=== PATIENT | male | born 1980 | race American Indian/Alaskan Native ===

== ENCOUNTER 2017-03-22 12:08 | Emergency (ER) | payer SELFPAY ==
[2017-03-22] MEDS ORDERED: Sodium Chloride 0.9% 1,000 ML IV STA (12:18)
--- NOTE | 2017-03-22 12:23 | ED PDOC ---
Arrival/HPI - General Time Seen by Provider: 03/22/17 12:15 Historian: Patient, Partner, EMS - History of Present Illness Narrative History of Present Illness (Text): 03/22/17 12:10 Michael Arias is a 36 year old male, whose past medical history includes PTSD, is brought into the emergency department by EMS for having "tremors." According to EMS, called them from home due to tremors and patient was non-verbal during transport. Patient currently complains of having nausea and abdominal pain. Patient denies chest pain, shortness of breath, cough, or other complaints. EMS reports that told them that patient has hx of similar reactions after influenza injection and had flu shot yesterday. Time/Duration: Prior to Arrival Symptom Onset: Sudden Symptom Course: Unchanged Context: Home Associated Symptoms (Text): tremors, nausea, abdominal pain Past Medical History - Provider Review Nursing Documentation Reviewed: Yes - Infectious Disease Hx of Infectious Diseases: None - Tetanus Immunization Tetanus Immunization: Unknown - Cardiac Hx Hypertension: No - Pulmonary Hx Tuberculosis: No - Neurological Hx Seizures: No - Hematological/Oncological Hx Cancer: No - Musculoskeletal/Rheumatological Hx Back Pain: Yes - Gastrointestinal Hx Irritable Bowel: Yes - Genitourinary/Gynecological Hx Sexually Transmitted Diseases: No - Psychiatric Hx Anxiety: Yes Hx Depression: Yes Hx Post Traumatic Stress Disorder: Yes Hx Substance Use: Yes (marijuana) - Anesthesia Hx Anesthesia Reactions: No Hx Malignant Hyperthermia: No - Suicidal Assessment Feels Threatened In Home Enviroment: No Family/Social History - Physician Review Nursing Documentation Reviewed: Yes Family/Social History: Unknown Family HX Smoking Status: Never Smoked Hx Alcohol Use: No Hx Substance Use: Yes (marijuana) Allergies/Home Meds Allergies/Adverse Reactions: Allergies NSAIDS (Non-Steroidal Anti-Inflamma Allergy (Verified 03/22/17 12:17) RASH Home Medications: Home Meds Medication Instructions Recorded Confirmed Unobtainable 03/22/17 03/22/17 Review of Systems - Review of Systems Constitutional: Other (tremors). absent: Fevers Eyes: absent: Vision Changes ENT: absent: Hearing Changes Respiratory: absent: SOB, Cough Cardiovascular: absent: Chest Pain Gastrointestinal: Abdominal Pain, Nausea. absent: Constipation, Diarrhea Genitourinary Male: absent: Dysuria Musculoskeletal: absent: Neck Pain Neurological: absent: Headache, Dizziness Psychiatric: absent: Anxiety, Depression, Suicidal Ideation Physical Exam Vital Signs Reviewed: Yes Vital Signs Temp Pulse Resp BP Pulse Ox 03/22/17 15:12 96 H 20 185/94 H 95 03/22/17 13:07 100 H 18 167/84 H 100 03/22/17 12:17 98.5 F 103 H 17 158/101 H 100 Temperature: Afebrile Blood Pressure: Hypertensive Pulse: Tachycardic Respiratory Rate: Normal Appearance: Positive for: Well-Appearing, Non-Toxic, Comfortable Pain Distress: None Mental Status: Positive for: Alert and Oriented X 3 - Systems Exam Head: Present: Atraumatic, Normocephalic Pupils: Present: PERRL Extroacular Muscles: Present: EOMI Conjunctiva: Present: Normal Mouth: Present: Moist Mucous Membranes Neck: Present: Normal Range of Motion Respiratory/Chest: Present: Clear to Auscultation, Good Air Exchange. No: Respiratory Distress, Accessory Muscle Use, Wheezes, Rales Cardiovascular: Present: Normal S1, S2, Tachycardic. No: Murmurs Abdomen: Present: Tenderness (right lower quadrant ), Normal Bowel Sounds. No: Distention, Peritoneal Signs, McBurney's Point Tender Upper Extremity: Present: Normal Inspection, Normal ROM, NORMAL PULSES, Other ( no tremor or tongue fasiculations). No: Cyanosis, Edema Lower Extremity: Present: Normal Inspection, NORMAL PULSES, Normal ROM. No: Edema, CALF TENDERNESS, Cyanosis Neurological: Present: GCS=15, CN II-XII Intact, Speech Normal Skin: Present: Warm, Dry. No: Rashes Psychiatric: Present: Alert, Oriented x 3, Normal Insight, Agitated (mild agitation ). No: Normal Affect (blunt affect ) Medical Decision Making ED Course and Treatment: 03/22/17 Impression: 36 year old male with tachycardia, right lower quadrant tenderness, blunt affect and mild agitation after being brought in to the emergency department by EMS. Plan: -- EKG -- Chest X-ray -- Labs -- Sodium Chloride -- Urinalysis -- Reassess and disposition Progress Notes: 03/22/17 12:50 Chest X-ray: Creator : Jhony Ruiz MD COMPARISON: 08/11/2016 FINDINGS: LUNGS: No active pulmonary disease. PLEURA: No significant pleural effusion identified, no pneumothorax apparent. CARDIOVASCULAR: Normal. OSSEOUS STRUCTURES: No significant abnormalities. VISUALIZED UPPER ABDOMEN: Normal. OTHER FINDINGS: None. IMPRESSION: No active disease. 03/22/17 13:03 EKG shows sinus tachycardia at 105bpm with normal intervals and no st changes. Heart rate normalized after IVF 03/22/17 13:49 Psych evaluated him. Reports that patient is not a danger to himself or others. Think symptoms are likely secondary to ptsd vs reaction to flu vaccine as family reports that similar symptoms happen yearly after flu shot 03/22/17 14:16 Patient eating tray 03/22/17 15:07 CT negative. Labs grossly normal. UA negative for infection. Patient is tolerating po and feels well. Requesting to be discharged. Previously cleared by psych. Instructed to follow-up for asymptomatic htn in ED - Lab Interpretations Lab Results: 03/22/17 12:27 03/22/17 12:27 Lab Results 03/22/17 13:49: Urine Opiates Screen Negative, Urine Methadone Screen Negative, Ur Barbiturates Screen Negative, Ur Phencyclidine Scrn Negative, Ur Amphetamines Screen Negative, U Benzodiazepines Scrn Negative, U Oth Cocaine Metabols Negative, U Cannabinoids Screen Positive H 03/22/17 13:49: Urine Color Yellow, Urine Appearance Clear, Urine pH 7.5, Ur Specific [place] 1.010, Urine Protein Trace H, Urine Glucose (UA) Negative, Urine Ketones 40 H, Urine Blood Negative, Urine Nitrate Negative, Urine Bilirubin Negative, Urine Urobilinogen 1.0 H, Ur Leukocyte Esterase Negative, Urine RBC Negative, Urine WBC Negative 03/22/17 12:27: pO2 50, VBG pH 7.47 H, VBG pCO2 35.0 L, VBG HCO3 25.5, VBG Total CO2 26.6, VBG O2 Sat (Calc) 89.8 H, VBG Base Excess 2.1 H, VBG Potassium 3.7, Sodium 136.0, Chloride 101.0, Glucose 96, Lactate 1.3, FiO2 21.0, Venous Blood Potassium 3.7 03/22/17 12:27: Alcohol, Quantitative < 10 03/22/17 12:27: Sodium 141, Chloride 99, Potassium 3.8, Carbon Dioxide 26, Anion Gap 20, BUN 9, Creatinine 1.4, Est GFR ( Amer) > 60, Est GFR (Non- Af Amer) 58, Random Glucose 97, Calcium 10.1, Phosphorus 3.8, Magnesium 2.2, Total Bilirubin 1.7 H, AST 62 H, ALT 63 H, Alkaline Phosphatase 47, Total Protein 9.1 H, Albumin 5.3 H, Globulin 3.8, Albumin/Globulin Ratio 1.4, Lipase 252 03/22/17 12:27: WBC 6.9 D, RBC 5.61, Hgb 16.9, Hct 45.5, MCV 81.1, MCH 30.1, MCHC 37.1 H, RDW 12.2, Plt Count 264, MPV 9.4, Gran % 65.7, Lymph % (Auto) 26.9 , [place] % (Auto) 7.2 H, Eos % (Auto) 0.1 L, Baso % (Auto) 0.1, Gran # 4.55, Lymph # 1.9, [place] # 0.5, Eos # 0.0, Baso # 0.01 I have reviewed the lab results: Yes - RAD Interpretation Radiology Orders: 03/22/17 12:17 CHEST PORTABLE [RAD] Stat 03/22/17 12:45 ABD & PELVIS IV CONTRAST ONLY [CT] Stat Brake Lining Driller: Radiologist - Medication Orders Current Medication Orders: Discontinued Medications Sodium Chloride (Sodium Chloride 0.9%) 1,000 mls @ 999 mls/hr IV .Q1H1M STA Stop: 03/22/17 13:18 Last Admin: 03/22/17 12:25 Dose: 999 mls/hr eMAR Start Stop Document 03/22/17 12:25 EQ (Rec: 03/22/17 13:06 EQ [id number]) Intravenous Solution Start Date 03/22/17 Start Time 12:25 - Scribe Statement The provider has reviewed the documentation as recorded by the Kel Hardin Provider Scribe Attestation: All medical record entries made by the Scribe were at my direction and personally dictated by me. I have reviewed the chart and agree that the record accurately reflects my personal performance of the history, physical exam, medical decision making, and the department course for this patient. I have also personally directed, reviewed, and agree with the discharge instructions and disposition. Disposition/Present on Arrival - Present on Arrival Any Indicators Present on Arrival: No History of DVT/PE: No History of Uncontrolled Diabetes: No Urinary Catheter: No History Surgical Site Infection Following: None - Disposition Have Diagnosis and Disposition been Completed?: Yes Diagnosis: PTSD (post-traumatic stress disorder), Abdominal pain, HTN (hypertension) Disposition: HOME/ ROUTINE Disposition Time: 15:08 Patient Plan: Discharge Condition: GOOD Additional Instructions: Follow-up with PMD within 2 days. Return to ED if condition worsens. Follow- up with psychiatrist as arranged with tube worker. Referrals: PCP,NO [Primary Care Provider] - Follow up with primary Forms: [employer] ([employer])
[2017-03-22 12:32] LABS: BASO # 0.01 K/mm3 (0.0-2.0); BASO % 0.1 % (0.0-3.0); EOS % 0.1 % (1.5-5.0); GRAN # 4.55 (1.4-6.5); GRAN % 65.7 % (50.0-68.0); HEMATOCRIT 45.5 % (42.0-52.0); LYMPH # 1.9 (1.2-3.4); LYMPH % 26.9 % (22.0-35.0); MEAN CELL VOLUME 81.1 fl (80.0-105.0); MEAN CORPUSCULAR HEMOGLOBIN 30.1 pg (25.0-35.0); MEAN CORPUSCULAR HGB CONC 37.1 g/dl (31.0-37.0); MEAN PLATELET VOLUME 9.4 fl (7.0-11.0); MONO # 0.5 (0.1-0.6); MONO % 7.2 % (1.0-6.0); RED CELL DISTRIBUTION WIDTH 12.2 % (11.5-14.5); WHITE BLOOD COUNT 6.9 10^3/ul (4.5-11.0)
[2017-03-22 12:33] LABS: VENOUS BLOOD GAS BASE EXCESS 2.1 mmol/L (0.0-2.0); VENOUS BLOOD PH 7.47 (7.32-7.43)
[2017-03-22 12:35] VITALS: TEMP 98.5
[2017-03-22 12:43] LABS: ALB/GLOB RATIO 1.4 (1.1-1.8); ALKALINE PHOSPHATASE 47 U/L (38-126); ALT/SGPT 63 U/L (7-56); AST/SGOT 62 U/L (17-59); BILIRUBIN,TOTAL 1.7 mg/dL (0.2-1.3); BLOOD UREA NITROGEN 9 mg/dL (7-21); CALCIUM 10.1 mg/dL (8.4-10.5); CARBON DIOXIDE 26 mmol/L (21-33); CHLORIDE 99 mmol/L (98-107); GFR AFRICAN-AMERICAN > 60; GLUCOSE,RANDOM 97 mg/dL (70-110); LIPASE 252 U/L (23-300); MAGNESIUM 2.2 mg/dL (1.7-2.2); PHOSPHOROUS 3.8 mg/dL (2.5-4.5); POTASSIUM 3.8 mmol/L (3.6-5.0); SODIUM 141 mmol/L (132-148); TOTAL PROTEIN 9.1 g/dL (5.8-8.3)
--- NOTE | 2017-03-22 12:50 | RAD ---
HISTORY: tremors COMPARISON: 08/11/2016 FINDINGS: LUNGS: No active pulmonary disease. PLEURA: No significant pleural effusion identified, no pneumothorax apparent. CARDIOVASCULAR: Normal. OSSEOUS STRUCTURES: No significant abnormalities. VISUALIZED UPPER ABDOMEN: Normal. OTHER FINDINGS: None. IMPRESSION: No active disease.
[2017-03-22] MEDS ORDERED: Iohexol 350 MG/100 ML VIAL ONE (13:02)
[2017-03-22 14:07] LABS: PH,URINE 7.5 (4.7-8.0); URINE BILIRUBIN NEGATIVE (NEGATIVE); URINE BLOOD NEGATIVE (NEGATIVE); URINE GLUCOSE (UA) NEGATIVE (NEGATIVE); URINE KETONE 40 mg/dL (NEGATIVE); URINE LEUKOCYTE ESTERASE NEGATIVE Leu/uL (NEGATIVE); URINE PROTEIN TRACE mg/dL (<30 mg/dL)
[2017-03-22 14:09] LABS: URINE APPEARANCE CLEAR (CLEAR); URINE COLOR YELLOW (YELLOW)
[2017-03-22 14:21] LABS: URINE RBC NEGATIVE /hpf (0-2)
[2017-03-22 14:22] LABS: URINE WBC NEGATIVE /hpf (0-6)
--- NOTE | 2017-03-22 15:05 | CT ---
PROCEDURE: CT Abdomen and Pelvis with contrast HISTORY: abdominal pain COMPARISON: None. TECHNIQUE: Contrast dose: 100 cc of Omni 350 Radiation dose: Total exam DLP = 519 mGy-cm. This CT exam was performed using one or more of the following dose reduction techniques: Automated exposure control, adjustment of the mA and/or kV according to patient size, and/or use of iterative reconstruction technique. FINDINGS: LOWER THORAX: Unremarkable. LIVER: Unremarkable. No gross lesion or ductal dilatation. GALLBLADDER AND BILE DUCTS: Unremarkable. PANCREAS: Unremarkable. No gross lesion or ductal dilatation. SPLEEN: Unremarkable. ADRENALS: Unremarkable. No mass. KIDNEYS AND URETERS: Unremarkable. No hydronephrosis. No solid mass. VASCULATURE: Unremarkable. No aortic aneurysm. BOWEL: Unremarkable. No obstruction. No gross mural thickening. APPENDIX: Normal appendix. PERITONEUM: Unremarkable. No free fluid. No free air. LYMPH NODES: Unremarkable. No enlarged lymph nodes. BLADDER: Unremarkable. REPRODUCTIVE: Unremarkable. BONES: No acute fracture. OTHER FINDINGS: None. IMPRESSION: Unremarkable contrast enhanced CT of the abdomen and pelvis.
[2017-03-22 15:13] VITALS: BP 185/94; PULSE 96; RESP 20; O2SAT 95
--- NOTE | 2017-03-23 14:29 | CARD ---
APPROVED REPORT EKG Measurement Heart [id number] <Conclusion> Sinus tachycardia Otherwise normal ECG
== END 2017-03-22 15:20 | disposition home or self-care (01) ==
LOC: ED 12:08
DX: F43.10 Post-traumatic stress disorder, unspecified (principal); R10.9 Unspecified abdominal pain; I10 Essential (primary) hypertension
CPT/HCPCS: 71010; 74177; 80053; 81001; 82803; 83690; 83735; 84100; 85025; 87040; 87086; 93005; 99284; G0480; J7040; Q9967

== ENCOUNTER 2017-11-02 22:08 | Emergency (ER) | payer MEDICARE ==
[2017-11-02 22:15] VITALS: BP 161/100; RESP 18; TEMP 98
[2017-11-02 22:18] VITALS: BMI 27.0
[2017-11-02] MEDS ORDERED: Sodium Chloride 0.9% 1,000 ML IV STA (22:29)
--- NOTE | 2017-11-02 22:47 | ED PDOC ---
Arrival/HPI - General Chief Complaint: Shortness Of Breath Time Seen by Provider: 11/02/17 22:14 Historian: Patient - History of Present Illness Narrative History of Present Illness (Text): 11/02/17 22:46 37 year old male, whose past medical history includes sleep apnea and anxiety, presents to the emergency department complaining of mild productive cough with yellowish sputum. Patient states to have occasional shortness of breath. He states he feels a little dehydrated and is requesting IV Fluids. Patient denies any fever, chills, chest pain, nausea, vomiting, diarrhea, urinary symptoms, back pain, neck pain, headache, dizziness, or any other complaints. Symptom Onset: Gradual Symptom Course: Unchanged Activities at Onset: Light Context: Home Past Medical History - Provider Review Nursing Documentation Reviewed: Yes - Infectious Disease Hx of Infectious Diseases: None - Tetanus Immunization Tetanus Immunization: Unknown - Cardiac Hx Hypertension: Yes - Pulmonary Hx Tuberculosis: No - Neurological Hx Seizures: No - HEENT Hx HEENT Disorder: No - Renal Hx Renal Disorder: No - Endocrine/Metabolic Hx Endocrine Disorders: No - Hematological/Oncological Hx Cancer: No - Integumentary Hx Dermatological Disorder: No - Musculoskeletal/Rheumatological Hx Back Pain: Yes - Gastrointestinal Hx Irritable Bowel: Yes - Genitourinary/Gynecological Hx Sexually Transmitted Diseases: No - Psychiatric Hx Anxiety: Yes Hx Depression: Yes Hx Post Traumatic Stress Disorder: Yes Hx Substance Use: Yes (marijuana) - Anesthesia Hx Anesthesia Reactions: No Hx Malignant Hyperthermia: No - Suicidal Assessment Feels Threatened In Home Enviroment: No Family/Social History - Physician Review Nursing Documentation Reviewed: Yes Family/Social History: No Known Family HX Smoking Status: Never Smoked Hx Alcohol Use: No Hx Substance Use: Yes (marijuana) Allergies/Home Meds Allergies/Adverse Reactions: Allergies NSAIDS (Non-Steroidal Anti-Inflamma Allergy (Verified 03/22/17 12:17) RASH Review of Systems - Physician Review All systems were reviewed & negative as marked: Yes - Review of Systems Constitutional: absent: Fevers, Other (Chills) Respiratory: SOB, Cough, Sputum Cardiovascular: absent: Chest Pain Gastrointestinal: absent: Diarrhea, Nausea, Vomiting Genitourinary Male: absent: Dysuria, Frequency, Hematuria Musculoskeletal: absent: Back Pain, Neck Pain Neurological: absent: Headache, Dizziness Physical Exam Vital Signs Reviewed: Yes Vital Signs Temp Pulse Resp BP Pulse Ox 11/03/17 00:43 88 99 11/02/17 22:15 18 99 11/02/17 22:14 98.0 F 101 H 18 161/100 H 100 Temperature: Afebrile Blood Pressure: Hypertensive Pulse: Tachycardic Respiratory Rate: Normal Appearance: Positive for: Well-Appearing, Non-Toxic, Comfortable Pain Distress: None Mental Status: Positive for: Alert and Oriented X 3 - Systems Exam Head: Present: Atraumatic, Normocephalic Pupils: Present: PERRL Extroacular Muscles: Present: EOMI Conjunctiva: Present: Normal Mouth: Present: Moist Mucous Membranes Neck: Present: Normal Range of Motion Respiratory/Chest: Present: Clear to Auscultation, Good Air Exchange. No: Respiratory Distress, Accessory Muscle Use Cardiovascular: Present: Regular Rate and Rhythm, Normal S1, S2. No: Murmurs Abdomen: No: Tenderness, Distention, Peritoneal Signs Back: Present: Normal Inspection Upper Extremity: Present: Normal Inspection. No: Cyanosis, Edema Lower Extremity: Present: Normal Inspection. No: Edema Neurological: Present: GCS=15, CN II-XII Intact, Speech Normal Skin: Present: Warm, Dry, Normal Color. No: Rashes Psychiatric: Present: Alert, Oriented x 3, Normal Insight, Normal Concentration Medical Decision Making ED Course and Treatment: 11/02/17 22:46 Impression: 37 year old male presents complaining of occasional shortness of breath associated with productive cough and yellowish sputum. Plan: -- Labs -- Chest X-ray -- IV Fluids -- Influenza A B -- Reassess and disposition Progress Notes: 11/02/17 23:17 EKG shows NSR at 66 BPM with no acute changes. Interpreted by me. 11/02/17 23:58 CXR Impression: As read by me, no acute process. 11/03/17 00:10 On re-evaluation, patient feels better and is in no acute distress. I have discussed the results and plan with the patient, who expresses understanding. Patient in agreement with plan to be discharged home. Patient is stable for discharge. Patient was instructed to follow up with physician or return if symptoms worsen or new concerning symptoms arise. - Lab Interpretations Lab Results: 11/02/17 23:00 11/02/17 23:00 Lab Results 11/02/17 23:00: Sodium 142, Potassium 4.1, Chloride 105, Carbon Dioxide 26, Anion Gap 15, BUN 21, Creatinine 1.2, Est GFR ( Amer) > 60, Est GFR (Non- Af Amer) > 60, Random Glucose 95, Calcium 8.6 11/02/17 23:00: WBC 5.9, RBC 4.94, Hgb 14.5 D, Hct 40.8 L, MCV 82.6, MCH 29.4, MCHC 35.5, RDW 12.4, Plt Count 228, MPV 9.8 11/02/17 23:00: Influenza Typ A,B (EIA) Negative for flu a/b I have reviewed the lab results: Yes - RAD Interpretation Radiology Orders: 11/02/17 22:29 CHEST PORTABLE [RAD] Stat - Medication Orders Current Medication Orders: Discontinued Medications Sodium Chloride (Sodium Chloride 0.9%) 1,000 mls @ 999 mls/hr IV .Q1H1M STA Stop: 11/02/17 23:29 Last Admin: 11/02/17 23:51 Dose: 999 mls/hr eMAR Start Stop Document 11/02/17 23:51 SS (Rec: 11/02/17 23:51 SS [id number]) Intravenous Solution Start Date 11/02/17 Start Time 22:51 End Date 11/02/17 End time 23:51 Total Infusion Time 60 - Scribe Statement The provider has reviewed the documentation as recorded by the Kel Winters Provider Scribe Attestation: All medical record entries made by the Scribritchie were at my direction and personally dictated by me. I have reviewed the chart and agree that the record accurately reflects my personal performance of the history, physical exam, medical decision making, and the department course for this patient. I have also personally directed, reviewed, and agree with the discharge instructions and disposition. Disposition/Present on Arrival - Present on Arrival Any Indicators Present on Arrival: No History of DVT/PE: No History of Uncontrolled Diabetes: No Urinary Catheter: No History of Decub. Ulcer: No History Surgical Site Infection Following: None - Disposition Have Diagnosis and Disposition been Completed?: Yes Diagnosis: Bronchitis Disposition: HOME/ ROUTINE Disposition Time: 00:05 Patient Plan: Discharge Condition: GOOD Discharge Instructions (ExitCare): Acute Bronchitis, Adult (DC) Additional Instructions: Take meds as prescribed/rest/follow up with your doctor this week Prescriptions: Benzonatate [Tessalon Perles] 100 mg PO TID PRN #21 sgl PRN Reason: Cough Azithromycin [Zithromax] 250 mg PO DAILY #4 tab Forms: [employer] ([place])
[2017-11-02 23:16] LABS: HEMOGLOBIN 14.5 g/dL (14.0-18.0); MEAN CELL VOLUME 82.6 fl (80.0-105.0); MEAN CORPUSCULAR HEMOGLOBIN 29.4 pg (25.0-35.0); MEAN CORPUSCULAR HGB CONC 35.5 g/dl (31.0-37.0); MEAN PLATELET VOLUME 9.8 fl (7.0-11.0); RBC 4.94 10^6/uL (3.5-6.1); RED CELL DISTRIBUTION WIDTH 12.4 % (11.5-14.5); WHITE BLOOD COUNT 5.9 10^3/ul (4.5-11.0)
[2017-11-02 23:23] LABS: CALCIUM 8.6 mg/dL (8.4-10.5); GFR AFRICAN-AMERICAN > 60; GFR NON-AFRICAN AMERICAN > 60
[2017-11-03] LABS: BLOOD UREA NITROGEN 21 mg/dL (7-21)
[2017-11-03 00:40] VITALS: O2SAT 99
[2017-11-03 00:45] VITALS: PULSE 88
--- NOTE | 2017-11-03 09:23 | RAD ---
HISTORY: cough COMPARISON: Comparison chest 03/22/2017 FINDINGS: LUNGS: No active pulmonary disease. PLEURA: No significant pleural effusion identified, no pneumothorax apparent. CARDIOVASCULAR: Normal. OSSEOUS STRUCTURES: No significant abnormalities. VISUALIZED UPPER ABDOMEN: Normal. OTHER FINDINGS: None. IMPRESSION: No active disease.
--- NOTE | 2017-11-04 08:09 | CARD ---
APPROVED REPORT EKG Measurement Heart [id number] HI [id number] [id number] <Conclusion> Normal sinus rhythm with sinus arrhythmia Poor R Progression V1-V3.
== END 2017-11-03 00:43 | disposition home or self-care (01) ==
LOC: ED 22:08
DX: J40 Bronchitis, not specified as acute or chronic (principal); I10 Essential (primary) hypertension
CPT/HCPCS: 71045; 80048; 85027; 87804; 93005; 96360; 99283; J7040